=== PATIENT | male | born 1955 | race Caucasian/White ===

== ENCOUNTER → 2021-02-22 12:26 | Outpatient (BNVA) | payer OTHER, SELFPAY | PROVIDERS: Visit Provider Surgery | DX: Z01.812 Encounter for preprocedural laboratory examination (principal); Z20.822 Contact with and (suspected) exposure to COVID-19 | CPT/HCPCS: 87635 ==

== ENCOUNTER 2021-02-27 09:41 | Day surgery (SDC) | payer OTHER, SELFPAY ==
[2021-02-26 14:22] VITALS: BMI 27.4
[2021-02-27 09:55] VITALS: BP 205/111; PULSE 70; RESP 18; TEMP 36.3; O2SAT 95
--- NOTE | 2021-02-27 10:06 | W.PM.OPSUD ---
Surgery/Procedure H&P Update DATE OF PROCEDURE: February 27, 2021 DATE H&P PERFORMED: 01/31/21 H&P UPDATE INFORMATION: I have reviewed H&P completed within last 30 days, I have examined patient prior to procedure and No changes to prior documentation PREOP DIAGNOSIS: Family history of colon cancer PRIMARY INDICATION FOR PROCEDURE: The same PLANNED PROCEDURE: Operation Date: 02/27/21 10:30 Proposed Procedures p Colonoscopy 32812 Z12.11(Not Applicable) - Rosendo Baldwin MD
[2021-02-27] MEDS: sodium chloride 0.9% 1,000 ML 30 ML IV (10:13)
[2021-02-27 10:16] LABS: Glucose Point of Care 153 mg/dL (70-110)
--- NOTE | 2021-02-27 10:28 | P.ANESASSM_ITS ---
Pre-Anesthetic Assessment Pre-Anesthetic Assessment: Height/Weight: Height 1.88 m Weight 97.069 kg Temp Pulse Resp BP Pulse Ox 97.3 F L 70 18 205/111 95 02/27/21 09:55 02/27/21 09:55 02/27/21 09:55 02/27/21 09:55 02/27/21 09:55 Preop Diagnosis: Family history of colon cancer Proposed Procedure: Operation Date: 02/27/21 10:30 Proposed Procedures p Colonoscopy 95086 Z12.11(Not Applicable) - Rosendo Baldwin MD Was Beta Antonieta taken within 24 hours: N/A Was Clonidine taken within 24 hours: N/A Last intake: Intake Last Liquid Date 02/26/21 Last Liquid Time 22:00 Last Solid Date 02/25/21 Last Solid Time 18:00 Social: Social History: Tobacco and No alcohol Exam: Pre-Anes Outpt Exam: alert, oriented x 3, clear to auscultation bilate rally and regular rate & rhythm Airway: Submandibular: WNL Cervical ROM: WNL MP: 2 Dentition: Full Additional comments: [facility] Pulmonary: Pulmonary: COPD CV/HEM: CV/HEM: HTN (Poorly controlled) Metabolic: Metabolic: DM Anesthetic Plan: ASA status: 3 Anesthesia: MAC Risk of > 500 ml blood loss (7ml/kg in children): No Meds/Allergies Current Medications: Current Medications Generic Name Dose Route Start Last Admin Trade Name Freq PRN Reason Stop Dose Admin Sodium Chloride 1,000 mls @ 30 ml s/hr 02/27/21 10:00 02/27/21 10:13 Sodium Chloride 0.9% IV 30 mls/hr .Q24H SORAIDA Administration PFSH Anesthesia PFSH: Family History Sister Cancer Father Cancer Mother Diabetes Social History Smoking and tobacco status: former smoker Second hand smoke exposure: No Alcohol intake: never Desire information about alcohol rehabilitation?: No Lives independently: Yes Data Anesthesia Other Labs: Laboratory Results - last 48 hr 02/27/21 10:12 POC Glucose 153 H Cardiac Studies: No Data to Display
[2021-02-27 11:26] VITALS: BP 96/58; PULSE 68; RESP 16; TEMP 36.3; O2SAT 97
[2021-02-27 11:39] VITALS: BP 114/69; PULSE 83; RESP 18; O2SAT 94
--- NOTE | 2021-02-27 14:27 | ANE.PACU2 ---
Inpatient post-anesthesia follow up: Airway intact: Yes Vital signs: Temperature 97.4 F Pulse Rate 83 Respiratory Rate 18 Blood Pressure 114/69 Pulse Oximetry 94 Oxygen Delivery Me thod Room Air Oxygen Flow Rate Fraction of Inspir ed Oxygen Hydration adequate: Yes Nausea and vomiting: No Pain level: 1 Mental status: Baseline
== END 2021-02-27 11:50 | disposition home or self-care (01) ==
PROVIDERS: PCP Family Medicine; Visit Provider Surgery
PROC: 0DJD8ZZ Inspection of Lower Intestinal Tract, Via Natural or Artificial Opening Endoscopic (ICD-10-PCS; CPT 45378; principal; 2021-02-27 10:30)
DX: Z12.11 Encounter for screening for malignant neoplasm of colon (principal); Z80.0 Family history of malignant neoplasm of digestive organs; Z79.82 Long term (current) use of aspirin; Z87.891 Personal history of nicotine dependence; I10 Essential (primary) hypertension; E11.9 Type 2 diabetes mellitus without complications; Z79.84 Long term (current) use of oral hypoglycemic drugs
CPT/HCPCS: 36416; 45378; 82962; 96360; G0121; J7030